=== PATIENT | female | born 2000 ===

== ENCOUNTER 2022-02-15 18:40 | Outpatient (CLI) | payer OTHER ==
[~2022-02-15] VITALS: Ht 157.5 cm; Wt 79.3 kg
[2022-02-15 19:04] VITALS: BP 126/81
[2022-02-15] MEDS ORDERED: PRENTAB9 PO (19:11)
[2022-02-15] MEDS ORDERED: HOME MED LIST COMPLETE! XX SCH (19:15)
== END 2022-02-15 20:44 | disposition home or self-care (01) ==
LOC: M LDO 18:40
PROVIDERS: ATTEND Obstetrics & Gynecology
DX: O26.893 Other specified pregnancy related conditions, third trimester (principal); N88.8 Other specified noninflammatory disorders of cervix uteri; Z3A.38 38 weeks gestation of pregnancy; O34.219 Maternal care for unspecified type scar from previous cesarean delivery; O32.1XX0 Maternal care for breech presentation, not applicable or unspecified; N89.8 Other specified noninflammatory disorders of vagina
CPT/HCPCS: 59025; 76817; 76819; 81001; 87081; 87086; G0463